=== PATIENT | male | born 1990 | race Two or more races ===

== ENCOUNTER 2024-01-27 18:34 | Emergency (ER) | payer MEDICAID ==
[~2024-01-27] VITALS: Ht 172.7 cm; Wt 74.8 kg
[~2024-01-27 18:34] MED LIST: CHLO25CA22 PO; ESCI20TA PO; LORA0.5T48 PO; MULT-594 PO; PROP20TA7 PO; THIA100T74 PO; TRAZ-257 PO
[2024-01-27] MEDS ORDERED: PANTOPRAZOLE SODIUM IV 40 MG in IV DEXTROSE 5% 100 ML IV ONE (19:15)
[2024-01-27 19:30] LABS: BASOPHILS # (AUTO) 0.2 K/UL (0.0-0.2); BASOPHILS % (AUTO) 2.7 % (0.0-2.0); EOSINOPHILS # (AUTO) 0.1 K/uL (0.0-0.7); EOSINOPHILS % (AUTO) 1.4 % (0.0-7.0); HEMOGLOBIN 15.3 g/dL (12.5-16.3); LYMPHOCYTES # (AUTO) 0.7 K/uL (0.8-4.8); LYMPHOCYTES % (AUTO) 9.9 % (20.5-51.5); MEAN CORPUSCULAR HGB CONC 35 g/dL (32.5-36.3); MEAN CORPUSCULAR VOLUME 92.3 fL (73.0-96.2); MONOCYTES # (AUTO) 0.6 K/uL (0.1-1.30); NEUTROPHILS # (AUTO) 5.6 K/uL (1.8-8.9); PLATELET COUNT (AUTO) 92 K/uL (152-348); RED BLOOD CELL COUNT(AUTO) 4.77 MIL/uL (4.06-5.63); RED CELL DISTRIBUTION WIDTH 13.4 % (12.1-16.2); WHITE BLOOD COUNT (AUTO) 7.1 K/uL (3.6-10.2)
[2024-01-27 19:40] LABS: DIFFERENTIAL COMMENT 1
[2024-01-27 19:44] LABS: CALCIUM 9.2 mg/dL (8.5-10.1); CARBON DIOXIDE 27 mmol/L (21-32); CHLORIDE 92 mmol/L (98-107); CREATININE 0.9 mg/dL (0.6-1.3); GLUCOSE 105 mg/dL (74-106); POTASSIUM 3.9 mmol/L (3.5-5.1); SODIUM SERUM 132 mmol/L (136-145); UREA NITROGEN, BLOOD 23 mg/dL (7-18)
[2024-01-27 19:45] LABS: ETHANOL < 3 MG/DL (0-10)
[2024-01-27 19:50] LABS: ALANINE AMINOTRANSFERASE 28 U/L (16-63); ALBUMIN 4.3 g/dL (3.4-5.0); ALKALINE PHOSPHATASE 104 U/L (50-136); ASPARTATE AMINOTRANSFERASE 20 U/L (15-37); BILIRUBIN,TOTAL 1.3 mg/dL (0.2-1.0); LIPASE 34 U/L (16-77); TOTAL PROTEIN, SERUM 7.8 g/dL (6.4-8.2)
[2024-01-27] MEDS ORDERED: PANTOPRAZOLE SODIUM 40 MG VIAL ONE (19:53)
[2024-01-27] MEDS: IV NS 1000 ML 1,000 ML IV ONE (20:14)
[2024-01-27] MEDS: PANTOPRAZOLE SODIUM 40 MG VIAL IV ONE (20:14)
[2024-01-27 21:04] LABS: *BILIRUBIN,URIN 1+ (NEGATIVE); *BLOOD, URINE NEGATIVE (NEGATIVE); *CLARITY,URINE CLEAR (CLEAR); *COLOR,URINE YELLOW (YELLOW); *KETONES,URINE TRACE (NEGATIVE); *PROTEIN,URINE NEGATIVE (NEGATIVE); LEUKOCYTE ESTERASE ,URINE NEGATIVE (NEGATIVE); NITRITE, URINE NEGATIVE (NEGATIVE); UGLUCOSE NEGATIVE (NEGATIVE)
[2024-01-27 21:16] LABS: BACTERIA,URINE FEW /HPF (NONE SEEN); URIC ACID CRYSTALS,URINE MANY /HPF (NONE SEEN); WBC,URINE NONE SEEN /HPF (0-3)
[2024-01-27] MEDS: HYDROCODONE/APAP 5-325MG TABLET PO ONE (21:20)
[2024-01-27 21:30] LABS: *AMPHETAMINE, URINE NEGATIVE (NEGATIVE); *BARBITURATE, URINE NEGATIVE (NEGATIVE); *BENZODIAZEPINE, URINE POSITIVE (NEGATIVE); *CANNABINOID, URINE NEGATIVE (NEGATIVE); *COCCAINE, URINE NEGATIVE (NEGATIVE); *OPIATE, URINE NEGATIVE (NEGATIVE); *PHENCYCLIDINE SCREEN,URINE NEGATIVE (NEGATIVE)
[2024-01-27 21:37] LABS: FENTANYL, URINE NEGATIVE (NEGATIVE)
[2024-01-27] MEDS ORDERED: HYDROCODONE/APAP 5-325MG TABLET ONE (21:40)
[2024-01-27] MEDS ORDERED: ONDANSETRON ODT 4 MG TAB.RAPDIS ONE (21:47)
[2024-01-27] MEDS: ONDANSETRON ODT 4 MG TAB.RAPDIS SL ONE (21:48)
[2024-01-27] MEDS ORDERED: OMEP20TA20 PO (23:26)
[2024-01-27] MEDS ORDERED: HYDROMORPHONE 1 MG/1 ML DISP.SYRIN ONE (23:40)
[2024-01-27] MEDS: HYDROMORPHONE 1 MG/1 ML DISP.SYRIN IM ONE (23:48)
[2024-01-27] MEDS ORDERED: SULF1TAB48 PO (23:54)
[2024-01-28 00:19] VITALS: BP 130/80; TEMP 98; O2SAT 98
== END 2024-01-28 00:20 | disposition home or self-care (01) ==
LOC: ER 18:44
DX: K29.70 Gastritis, unspecified, without bleeding (principal); Z98.890 Other specified postprocedural states; Z60.2 Problems related to living alone; Z79.899 Other long term (current) drug therapy
CPT/HCPCS: 80053; 81001; 83880; 83690; 85025; 85379; 85651; 86900; 86901; 84484; 36415; 71250; 74176; 99285; 96361; 96374; 96372; 83605; 80320; 80307; C9113 ×2; J1170; J7040; A4606; A4663; G0480; Q0162

== ENCOUNTER 2024-03-30 13:26 | Emergency (ER) | payer MEDICAID ==
[~2024-03-30] VITALS: Ht 175.3 cm; Wt 76.2 kg
[~2024-03-30 13:26] MED LIST changes: +OMEP20TA20 PO; +SULF1TAB48 PO
[2024-03-30] MEDS ORDERED: DIAZEPAM 10 MG/2 ML DISP.SYRIN ONE ×2 (14:15→15:27)
[2024-03-30] MEDS: IV NORMAL SALINE 1000 ML BAG IV ONE (14:22)
[2024-03-30] MEDS: DIAZEPAM 10 MG/2 ML DISP.SYRIN IV ONE ×2 (14:22→15:29)
[2024-03-30 14:24] LABS: BASOPHILS # (AUTO) 0.1 K/UL (0.0-0.2); BASOPHILS % (AUTO) 2.1 % (0.0-2.0); EOSINOPHILS # (AUTO) 0.1 K/uL (0.0-0.7); EOSINOPHILS % (AUTO) 2.1 % (0.0-7.0); HEMATOCRIT 45.5 % (36.7-47.1); HEMOGLOBIN 15.1 g/dL (12.5-16.3); LYMPHOCYTES # (AUTO) 1.4 K/uL (0.8-4.8); LYMPHOCYTES % (AUTO) 23.2 % (20.5-51.5); MEAN CORPUSCULAR HEMOGLOBIN 32.2 uug (23.8-33.4); MEAN CORPUSCULAR HGB CONC 33 g/dL (32.5-36.3); MEAN CORPUSCULAR VOLUME 96.9 fL (73.0-96.2); MONOCYTES # (AUTO) 0.7 K/uL (0.1-1.30); MONOCYTES % (AUTO) 11.4 % (0.0-11.0); NEUTROPHILS # (AUTO) 3.6 K/uL (1.8-8.9); NEUTROPHILS % (AUTO) 61.2 % (38.5-71.5); PLATELET COUNT (AUTO) 403 K/uL (152-348); RED CELL DISTRIBUTION WIDTH 15.3 % (12.1-16.2); WHITE BLOOD COUNT (AUTO) 5.9 K/uL (3.6-10.2)
[2024-03-30 14:33] LABS: DIFFERENTIAL COMMENT 1
[2024-03-30 14:35] LABS: *BILIRUBIN,URIN NEGATIVE (NEGATIVE); *BLOOD, URINE NEGATIVE (NEGATIVE); *CLARITY,URINE CLEAR (CLEAR); *COLOR,URINE YELLOW (YELLOW); *KETONES,URINE TRACE (NEGATIVE); *PROTEIN,URINE NEGATIVE (NEGATIVE); LEUKOCYTE ESTERASE ,URINE NEGATIVE (NEGATIVE); NITRITE, URINE NEGATIVE (NEGATIVE); PH,URINE 8.5 (5.0-8.0); UGLUCOSE NEGATIVE (NEGATIVE)
[2024-03-30 14:37] LABS: CALCIUM 9.4 mg/dL (8.5-10.1); CARBON DIOXIDE 28 mmol/L (21-32); CHLORIDE 98 mmol/L (98-107); CREATININE 0.9 mg/dL (0.6-1.3); GLUCOSE 93 mg/dL (74-106); POTASSIUM 4.9 mmol/L (3.5-5.1); SODIUM SERUM 137 mmol/L (136-145); UREA NITROGEN, BLOOD 15 mg/dL (7-18)
[2024-03-30 14:38] LABS: ETHANOL < 3 MG/DL (0-10)
[2024-03-30 14:43] LABS: ALANINE AMINOTRANSFERASE 35 U/L (16-63); ALBUMIN 4.4 g/dL (3.4-5.0); ALKALINE PHOSPHATASE 79 U/L (50-136); ASPARTATE AMINOTRANSFERASE 18 U/L (15-37); BILIRUBIN,DIRECT 0.3 mg/dL (0.0-0.2); BILIRUBIN,TOTAL 1.1 mg/dL (0.2-1.0); TOTAL PROTEIN, SERUM 7.6 g/dL (6.4-8.2)
[2024-03-30 14:44] LABS: BACTERIA,URINE NONE SEEN /HPF (NONE SEEN); RBC,URINE NONE SEEN /HPF (0-3); SQUAMOUS EPITHELIAL CELL,UR FEW /HPF (NONE SEEN); WBC,URINE 0-3 /HPF (0-3)
[2024-03-30 14:45] LABS: *AMPHETAMINE, URINE NEGATIVE (NEGATIVE); *BARBITURATE, URINE NEGATIVE (NEGATIVE); *BENZODIAZEPINE, URINE POSITIVE (NEGATIVE); *CANNABINOID, URINE NEGATIVE (NEGATIVE); *COCCAINE, URINE NEGATIVE (NEGATIVE); *OPIATE, URINE POSITIVE (NEGATIVE); *PHENCYCLIDINE SCREEN,URINE NEGATIVE (NEGATIVE)
[2024-03-30 14:46] LABS: FENTANYL, URINE NEGATIVE (NEGATIVE)
[2024-03-30] MEDS ORDERED: MAGNESIUM SULFATE/D5W 100 ML ONE (14:51)
[2024-03-30] MEDS: MAGNESIUM SULFATE/D5W 100 ML IV ONE (14:56)
[2024-03-30] MEDS ORDERED: GABAPENTIN 300 MG CAPSULE ONE (14:58)
[2024-03-30] MEDS ORDERED: THIAMINE HCL 200 MG/2 ML VIAL ONE (14:58)
[2024-03-30] MEDS: THIAMINE HCL 200 MG/2 ML VIAL IV ONE (15:03)
[2024-03-30] MEDS: GABAPENTIN 300 MG CAPSULE PO ONE (15:03)
[2024-03-30] MEDS ORDERED: GABA300C PO (16:04)
[2024-03-30] MEDS ORDERED: DIAZ10TA4 PO (16:04)
[2024-03-30 16:29] VITALS: BP 127/82; TEMP 98; O2SAT 99
== END 2024-03-30 16:30 | disposition home or self-care (01) ==
LOC: ER 13:26
DX: F10.239 Alcohol dependence with withdrawal, unspecified (principal); Z98.890 Other specified postprocedural states; Z79.899 Other long term (current) drug therapy; Z60.2 Problems related to living alone; Y90.0 Blood alcohol level of less than 20 mg/100 ml
CPT/HCPCS: 36415; 83735; 85025; 93005; A4606; A4663; G0480; J3360; J3411; J3475; J7040

== ENCOUNTER 2024-07-13 00:15 | Emergency (ER) | payer MEDICAID ==
[~2024-07-13] VITALS: Ht 172.7 cm; Wt 74.8 kg
[~2024-07-13 00:15] MED LIST changes: +DIAZ10TA4 PO; +GABA300C PO; -LORA0.5T48 PO; -SULF1TAB48 PO; -THIA100T74 PO
[2024-07-13] MEDS ORDERED: ONDANSETRON ODT 4 MG TAB.RAPDIS ONE (02:17)
[2024-07-13] MEDS ORDERED: FAMOTIDINE 20 MG TABLET ONE (02:17)
[2024-07-13] MEDS ORDERED: LORAZEPAM 0.5 MG TABLET ONE (02:18)
[2024-07-13 02:24] LABS: EOSINOPHILS # (AUTO) 0.1 K/uL (0.0-0.7); HEMOGLOBIN 15.5 g/dL (12.5-16.3); LYMPHOCYTES # (AUTO) 0.6 K/uL (0.8-4.8)
[2024-07-13] MEDS: ONDANSETRON ODT 4 MG TAB.RAPDIS SL ONE (02:24)
[2024-07-13] MEDS: FAMOTIDINE 20 MG TABLET PO ONE (02:24)
[2024-07-13] MEDS: LORAZEPAM 0.5 MG TABLET PO ONE (02:24)
[2024-07-13 02:26] LABS: BASOPHILS % (AUTO) 0.3 % (0.0-2.0); EOSINOPHILS % (AUTO) 2.8 % (0.0-7.0); LYMPHOCYTES % (AUTO) 14.6 % (20.5-51.5); MEAN CORPUSCULAR HEMOGLOBIN 32.7 uug (23.8-33.4); MEAN CORPUSCULAR HGB CONC 35 g/dL (32.5-36.3); MONOCYTES # (AUTO) 0.6 K/uL (0.1-1.30); MONOCYTES % (AUTO) 13.1 % (0.0-11.0); NEUTROPHILS % (AUTO) 69.2 % (38.5-71.5); RED BLOOD CELL COUNT(AUTO) 4.74 MIL/uL (4.06-5.63); RED CELL DISTRIBUTION WIDTH 15.1 % (12.1-16.2); WHITE BLOOD COUNT (AUTO) 4.3 K/uL (3.6-10.2)
[2024-07-13 02:43] LABS: *BLOOD, URINE NEGATIVE (NEGATIVE); *CLARITY,URINE CLEAR (CLEAR); *COLOR,URINE YELLOW (YELLOW); *KETONES,URINE 2+ (NEGATIVE); *PROTEIN,URINE 2+ (NEGATIVE); LEUKOCYTE ESTERASE ,URINE NEGATIVE (NEGATIVE); NITRITE, URINE POSITIVE (NEGATIVE); PH,URINE 5.5 (5.0-8.0); UGLUCOSE NEGATIVE (NEGATIVE)
[2024-07-13 02:44] LABS: PLATELET COUNT (AUTO) 45 K/uL (152-348)
[2024-07-13 03:01] LABS: ALBUMIN 4.7 g/dL (3.4-5.0); BILIRUBIN,DIRECT 0.4 mg/dL (0.0-0.2); BILIRUBIN,TOTAL 1.6 mg/dL (0.2-1.0); CALCIUM 10.2 mg/dL (8.5-10.1); CREATININE 1.2 mg/dL (0.6-1.3); POTASSIUM 4.4 mmol/L (3.5-5.1); TOTAL PROTEIN, SERUM 8.4 g/dL (6.4-8.2)
[2024-07-13 03:02] LABS: *BILIRUBIN,URIN 3+ (NEGATIVE)
[2024-07-13 03:10] LABS: BACTERIA,URINE MODERATE /HPF (NONE SEEN); RBC,URINE 0-3 /HPF (0-3); SQUAMOUS EPITHELIAL CELL,UR FEW /HPF (NONE SEEN); WBC,URINE 0-3 /HPF (0-3); YEAST,URINE NONE SEEN /HPF (NONE SEEN)
[2024-07-13 03:11] LABS: CALCIUM OXALATE CRYSTALS,UR FEW /HPF (NONE SEEN); CALCIUM PHOSPHATE CRYSTALS,UR NONE SEEN /HPF (NONE SEEN); MUCUS,URINE MANY /LPF (0-FEW)
[2024-07-13] MEDS: IV NS 1000 ML 1,000 ML IV ONE (04:04)
[2024-07-13] MEDS ORDERED: CARB200T8 PO (05:48)
[2024-07-13] MEDS ORDERED: CEFP200T14 PO (05:48)
[2024-07-13] MEDS ORDERED: ONDA4TAB11 PO (05:48)
[2024-07-13 06:02] VITALS: BP 120/80; TEMP 98.4; O2SAT 99
== END 2024-07-13 06:05 | disposition home or self-care (01) ==
LOC: ER 00:15
DX: S83.8X1A Sprain of other specified parts of right knee, initial encounter (principal); S20.211A Contusion of right front wall of thorax, initial encounter; F10.939 Alcohol use, unspecified with withdrawal, unspecified; E87.1 Hypo-osmolality and hyponatremia; E86.0 Dehydration; D69.6 Thrombocytopenia, unspecified; N39.0 Urinary tract infection, site not specified; R11.0 Nausea; R06.00 Dyspnea, unspecified; F32.A Depression, unspecified; F41.9 Anxiety disorder, unspecified; Z92.21 Personal history of antineoplastic chemotherapy; Z85.47 Personal history of malignant neoplasm of testis; Z79.899 Other long term (current) drug therapy; V89.2XXA Person injured in unspecified motor-vehicle accident, traffic, initial encounter; Y93.89 Activity, other specified; Y92.410 Unspecified street and highway as the place of occurrence of the external cause; Y99.8 Other external cause status
CPT/HCPCS: 99284; 96360; 71046; 80076; 80048; 81001; 83690; 83735; 85025; 85730; 36415; 73560; 87086; J7040; A4606; A4663; Q0162

== ENCOUNTER 2024-12-13 10:26 | Inpatient (IN) | payer MEDICAID ==
[~2024-12-13] VITALS: Ht 172.7 cm; Wt 77.1 kg
[~2024-12-13 10:26] MED LIST changes: +CARB200T8 PO; +CEFP200T14 PO; +ONDA4TAB11 PO
[2024-12-13] MEDS ORDERED: KETOROLAC TROMETHAMINE 15 MG INJ ONE (11:03)
[2024-12-13] MEDS: IV NORMAL SALINE 1000 ML BAG IV ONE (11:07)
[2024-12-13] MEDS: KETOROLAC TROMETHAMINE 15 MG INJ IVP ONE (11:08)
[2024-12-13 11:19] LABS: BASOPHILS % (AUTO) 0.9 % (0.0-2.0); EOSINOPHILS # (AUTO) 0.1 K/uL (0.0-0.7); HEMATOCRIT 42.9 % (36.7-47.1); HEMOGLOBIN 14.6 g/dL (12.5-16.3); LYMPHOCYTES # (AUTO) 1.6 K/uL (0.8-4.8); LYMPHOCYTES % (AUTO) 35.9 % (20.5-51.5); MEAN CORPUSCULAR HEMOGLOBIN 32.7 uug (23.8-33.4); MEAN CORPUSCULAR HGB CONC 34 g/dL (32.5-36.3); MEAN CORPUSCULAR VOLUME 96.4 fL (73.0-96.2); MONOCYTES # (AUTO) 0.5 K/uL (0.1-1.30); MONOCYTES % (AUTO) 10.3 % (0.0-11.0); NEUTROPHILS # (AUTO) 2.3 K/uL (1.8-8.9); NEUTROPHILS % (AUTO) 50.9 % (38.5-71.5); PLATELET COUNT (AUTO) 160 K/uL (152-348); RED BLOOD CELL COUNT(AUTO) 4.45 MIL/uL (4.06-5.63); RED CELL DISTRIBUTION WIDTH 14.3 % (12.1-16.2); WHITE BLOOD COUNT (AUTO) 4.5 K/uL (3.6-10.2)
[2024-12-13 11:23] LABS: DIFFERENTIAL COMMENT 1
[2024-12-13 11:28] LABS: *BILIRUBIN,URIN NEGATIVE (NEGATIVE); *BLOOD, URINE NEGATIVE (NEGATIVE); *CLARITY,URINE CLEAR (CLEAR); *COLOR,URINE YELLOW (YELLOW); *KETONES,URINE NEGATIVE (NEGATIVE); *PROTEIN,URINE NEGATIVE (NEGATIVE); LEUKOCYTE ESTERASE ,URINE NEGATIVE (NEGATIVE); NITRITE, URINE NEGATIVE (NEGATIVE); UGLUCOSE NEGATIVE (NEGATIVE)
[2024-12-13 11:29] LABS: ALANINE AMINOTRANSFERASE 35 U/L (16-63); ALKALINE PHOSPHATASE 65 U/L (50-136); ASPARTATE AMINOTRANSFERASE 34 U/L (15-37); BILIRUBIN,DIRECT 0.3 mg/dL (0.0-0.2); BILIRUBIN,TOTAL 0.8 mg/dL (0.2-1.0); CALCIUM 8.8 mg/dL (8.5-10.1); CARBON DIOXIDE 27 mmol/L (21-32); CHLORIDE 100 mmol/L (98-107); CREATININE 0.6 mg/dL (0.6-1.3); GLUCOSE 154 mg/dL (74-106); LIPASE 47 U/L (16-77); POTASSIUM 3.4 mmol/L (3.5-5.1); SODIUM SERUM 136 mmol/L (136-145); TOTAL PROTEIN, SERUM 7.1 g/dL (6.4-8.2); UREA NITROGEN, BLOOD 8 mg/dL (7-18)
[2024-12-13 11:36] LABS: BACTERIA,URINE FEW /HPF (NONE SEEN); WBC,URINE 0-3 /HPF (0-3)
[2024-12-13] MEDS ORDERED: HYDROMORPHONE 1 MG/1 ML DISP.SYRIN ONE ×2 (11:39→14:45)
[2024-12-13] MEDS ORDERED: ONDANSETRON 4 MG/2 ML VIAL ONE (11:39)
[2024-12-13] MEDS: HYDROMORPHONE 1 MG/1 ML DISP.SYRIN IV ONE ×4 (11:44→22:52)
[2024-12-13] MEDS: ONDANSETRON 4 MG/2 ML VIAL IV ONE (11:44)
[2024-12-13] MEDS ORDERED: IV NORMAL SALINE 250 ML IV ONE (12:24)
[2024-12-13] MEDS ORDERED: IOHEXOL 300MG/ML 100 ML INFUS..BTL ONE (12:24)
[2024-12-13] MEDS ORDERED: SWABABLE VALVE TRANSFER SET EA MC ONE (12:24)
[2024-12-13 12:34] LABS: *AMPHETAMINE, URINE NEGATIVE (NEGATIVE); *BARBITURATE, URINE NEGATIVE (NEGATIVE); *BENZODIAZEPINE, URINE POSITIVE (NEGATIVE); *CANNABINOID, URINE NEGATIVE (NEGATIVE); *COCCAINE, URINE NEGATIVE (NEGATIVE); *OPIATE, URINE NEGATIVE (NEGATIVE); *PHENCYCLIDINE SCREEN,URINE NEGATIVE (NEGATIVE); FENTANYL, URINE NEGATIVE (NEGATIVE)
[2024-12-13] MEDS ORDERED: REMEDY ESSENTIAL ZINC PASTE 113 GM TP PRN (16:45)
[2024-12-13] MEDS ORDERED: MAGNESIUM HYDROXIDE 30 ML LIQUID UDC PO PRN (16:45)
[2024-12-13] MEDS ORDERED: ACETAMINOPHEN 325 MG TABLET PO PRN (16:45)
[2024-12-13] MEDS ORDERED: ZOLPIDEM 5 MG TABLET PO PRN (16:45)
[2024-12-13] MEDS ORDERED: GABAPENTIN 300 MG CAPSULE PO PRN (16:45)
[2024-12-13] MEDS ORDERED: CARBAMAZEPINE 200 MG TABLET PO PRN (16:45)
[2024-12-13] MEDS ORDERED: FOLI1TAB94 PO (17:27)
[2024-12-13] MEDS ORDERED: CYAN100T44 PO (17:27)
[2024-12-13 18:12] VITALS: BP 119/88; TEMP 98; O2SAT 96
[2024-12-13] MEDS: PROPRANOLOL HCL 20 MG TABLET PO SCH (18:21)
[2024-12-13] MEDS: SILVER NITRATE APPLICATOR STICK EACH TP ONE ×2 (18:45→22:16)
[2024-12-13] MEDS: LIDOCAINE 2%-EPI 1:100,000 20 ML VIAL TP ONE ×2 (18:45→22:00)
[2024-12-13 19:30] VITALS: BP 140/89; TEMP 98.1; O2SAT 98
[2024-12-13] MEDS: TRAZODONE 100 MG TABLET PO SCH (21:00)
[2024-12-13] MEDS ORDERED: SILVER NITRATE APPLICATOR STICK EACH TP ONE ×2 (22:04→22:47)
[2024-12-13] MEDS ORDERED: THIAMINE HCL 200 MG/2 ML VIAL ONE (22:05)
[2024-12-13] MEDS: THIAMINE HCL INJ 100 MG in IV DEXTROSE 5% 50 ML IV SCH (22:15)
[2024-12-13] MEDS: NICOTINE 21 MG/24HR PATCH TD SCH (22:27)
[2024-12-13] MEDS ORDERED: LIDOCAINE 2%-EPI 1:100,000 20 ML VIAL ONE (22:38)
[2024-12-13] MEDS: CLINDAMYCIN PHOSPHATE IV 900 MG in IV DEXTROSE 5% 100 ML IV SCH (23:18)
[2024-12-14] MEDS: HYDROCODONE/APAP 10-325 MG TABLET PO PRN (00:24)
[2024-12-14] MEDS: HYDROMORPHONE 1 MG/1 ML DISP.SYRIN IV PRN (04:27)
[2024-12-14 06:09] VITALS: BP 132/96; TEMP 98.3; O2SAT 99
[2024-12-14 07:45] LABS: BASOPHILS % (AUTO) 0.6 % (0.0-2.0); EOSINOPHILS # (AUTO) 0.1 K/uL (0.0-0.7); EOSINOPHILS % (AUTO) 2.5 % (0.0-7.0); HEMATOCRIT 41.7 % (36.7-47.1); HEMOGLOBIN 14.3 g/dL (12.5-16.3); LYMPHOCYTES # (AUTO) 0.9 K/uL (0.8-4.8); LYMPHOCYTES % (AUTO) 21.2 % (20.5-51.5); MEAN CORPUSCULAR HEMOGLOBIN 33.2 uug (23.8-33.4); MEAN CORPUSCULAR HGB CONC 34 g/dL (32.5-36.3); MEAN CORPUSCULAR VOLUME 97.1 fL (73.0-96.2); MONOCYTES # (AUTO) 0.5 K/uL (0.1-1.30); MONOCYTES % (AUTO) 10.9 % (0.0-11.0); NEUTROPHILS # (AUTO) 2.7 K/uL (1.8-8.9); NEUTROPHILS % (AUTO) 64.8 % (38.5-71.5); PLATELET COUNT (AUTO) 129 K/uL (152-348); RED BLOOD CELL COUNT(AUTO) 4.29 MIL/uL (4.06-5.63); RED CELL DISTRIBUTION WIDTH 14.2 % (12.1-16.2); WHITE BLOOD COUNT (AUTO) 4.2 K/uL (3.6-10.2)
[2024-12-14 07:56] LABS: CALCIUM 8.9 mg/dL (8.5-10.1); CREATININE 0.7 mg/dL (0.6-1.3); MAGNESIUM 1.8 mg/dL (1.8-2.4); PHOSPHOROUS 3.3 mg/dL (2.5-4.9); POTASSIUM 4.5 mmol/L (3.5-5.1)
[2024-12-14] MEDS: CHLORDIAZEPOXIDE HCL 25 MG CAPSULE PO SCH (09:00)
[2024-12-14] MEDS ORDERED: Medication Not On Formulary EA (Multivitamins (Multivitamin) 1 TAB) PO SCH (09:00)
[2024-12-14] MEDS ORDERED: Medication Not On Formulary EA (Escitalopram Oxalate (Lexapro) 1 TAB) PO SCH (09:00)
[2024-12-14] MEDS: MULTIVITAMINS,THERAPEUTIC TABLET PO SCH (09:01)
[2024-12-14] MEDS: ESCITALOPRAM OXALATE 10 MG TABLET PO SCH (09:01)
[2024-12-14] MEDS: FOLIC ACID 1 MG TABLET PO SCH (09:01)
[2024-12-14] MEDS: CYANOCOBALAMIN 100 MCG TABLET PO SCH (09:02)
[2024-12-14] MEDS ORDERED: LORAZEPAM 2 MG/1 ML VIAL IV ONE (11:30)
[2024-12-14 11:45] VITALS: BP 146/104; TEMP 98; O2SAT 100
[2024-12-14] MEDS: MVI ADULT 10 ML VIAL=1 AMP 10 ML, THIAMINE HCL INJ 100 MG, FOLIC ACID 1 MG, MAGNESIUM S... IV ONE (12:44)
[2024-12-14] MEDS: LORAZEPAM 2 MG/1 ML VIAL IM ONE (12:58)
[2024-12-14] MEDS: ONDANSETRON 4 MG/2 ML VIAL IV PRN (14:31)
[2024-12-14 15:40] VITALS: BP 128/66; TEMP 98.5; O2SAT 100
[2024-12-14 19:30] VITALS: BP 124/85; TEMP 97.8; O2SAT 98
[2024-12-14] MEDS: THIAMINE HCL 100 MG TABLET PO SCH (20:27)
[2024-12-15 05:32] VITALS: BP 127/88; TEMP 98.1; O2SAT 98
[2024-12-15 07:58] LABS: CALCIUM 9.1 mg/dL (8.5-10.1); CREATININE 0.7 mg/dL (0.6-1.3); POTASSIUM 4.5 mmol/L (3.5-5.1)
[2024-12-15 08:00] VITALS: BP 127/88; TEMP 98; O2SAT 98
[2024-12-15 11:14] VITALS: BP 115/70; TEMP 98.4; O2SAT 96
[2024-12-15] MEDS ORDERED: LORAZEPAM 2 MG/1 ML VIAL IM PRN (13:30)
[2024-12-15] MEDS: LORAZEPAM 1 MG TABLET PO PRN (14:16)
[2024-12-15 15:41] VITALS: BP 122/74; TEMP 98.3; O2SAT 95
[2024-12-15] MEDS: LACTULOSE 20 G/30 ML LIQUID UDC PO ONE (17:06)
[2024-12-15 23:12] VITALS: BP 117/69; TEMP 98; O2SAT 98
[2024-12-16 06:00] LABS: EOSINOPHILS # (AUTO) 0.2 K/uL (0.0-0.7); EOSINOPHILS % (AUTO) 4.4 % (0.0-7.0); HEMATOCRIT 41.2 % (36.7-47.1); HEMOGLOBIN 14.2 g/dL (12.5-16.3); LYMPHOCYTES # (AUTO) 1.2 K/uL (0.8-4.8); LYMPHOCYTES % (AUTO) 33.6 % (20.5-51.5); MEAN CORPUSCULAR HEMOGLOBIN 33.5 uug (23.8-33.4); MEAN CORPUSCULAR HGB CONC 35 g/dL (32.5-36.3); MEAN CORPUSCULAR VOLUME 96.8 fL (73.0-96.2); MONOCYTES # (AUTO) 0.4 K/uL (0.1-1.30); MONOCYTES % (AUTO) 12.2 % (0.0-11.0); NEUTROPHILS # (AUTO) 1.7 K/uL (1.8-8.9); NEUTROPHILS % (AUTO) 48.8 % (38.5-71.5); PLATELET COUNT (AUTO) 115 K/uL (152-348); RED BLOOD CELL COUNT(AUTO) 4.25 MIL/uL (4.06-5.63); RED CELL DISTRIBUTION WIDTH 14.1 % (12.1-16.2); WHITE BLOOD COUNT (AUTO) 3.5 K/uL (3.6-10.2)
[2024-12-16 06:01] LABS: DIFFERENTIAL COMMENT 1
[2024-12-16 06:47] VITALS: BP 119/83; TEMP 96.9; O2SAT 98
[2024-12-16] MEDS: MIRALAX 17 GM POWD.PACK PO SCH (08:20)
[2024-12-16 10:36] VITALS: BP 135/65; TEMP 98.2; O2SAT 96
[2024-12-16] MEDS: HYDROCORTISONE 2.5 % RECTAL CREAM 28.35 GM TUBE RC PRN (12:02)
[2024-12-16 15:43] VITALS: BP 130/87; TEMP 97.8; O2SAT 99
[2024-12-16 19:30] VITALS: BP 115/80; TEMP 98; O2SAT 95
[2024-12-17 06:34] VITALS: BP 122/77; TEMP 98.3; O2SAT 98
[2024-12-17 11:10] VITALS: BP 125/70; TEMP 98.2; O2SAT 97
[2024-12-17 15:29] VITALS: BP 128/85; TEMP 97.6; O2SAT 100
[2024-12-17] MEDS: MORPHINE SULFATE SR 30 MG TABLET.SA PO SCH (20:30)
[2024-12-17 21:24] VITALS: BP 123/78; TEMP 97.7
[2024-12-18 06:53] VITALS: BP 131/83; TEMP 97.9
[2024-12-18] MEDS ORDERED: FOLI1TAB94 PO (10:41)
[2024-12-18] MEDS ORDERED: MULT-24 PO (10:41)
[2024-12-18] MEDS ORDERED: LIDO35.4 TOP (10:41)
[2024-12-18] MEDS ORDERED: ESCI-9 PO (10:41)
[2024-12-18] MEDS ORDERED: HYDR-3980 PO ×2 (10:41→12:38)
[2024-12-18] MEDS ORDERED: NICO-780 TD (10:41)
[2024-12-18] MEDS ORDERED: HYDR28.316 RC (10:41)
[2024-12-18] MEDS ORDERED: MORP30TA59 PO ×2 (10:41→12:38)
[2024-12-18] MEDS ORDERED: CYAN100T9 PO (10:41)
[2024-12-18] MEDS ORDERED: POLY17PO4 PO (10:41)
[2024-12-18] MEDS ORDERED: CHLO25CA22 PO ×2 (10:41→12:38)
[2024-12-18] MEDS ORDERED: THIA100T13 PO (10:41)
[2024-12-18] MEDS: LIDOCAINE 5% OINT 35.44 GM TUBE TOP PRN (10:59)
[2024-12-18 11:40] VITALS: BP 128/76; TEMP 97.9; O2SAT 100
[2024-12-18] MEDS ORDERED: CLINDAMYCIN PHOSPHATE IV 900 MG in IV DEXTROSE 5% 50 ML IV SCH (12:14)
[2024-12-18] MEDS ORDERED: CLIN300C12 PO (12:38)
[2024-12-18] MEDS ORDERED: THIA100T68 PO (12:38)
[2024-12-18 12:49] VITALS: BP 124/67
[2024-12-18] MEDS: CLINDAMYCIN PHOSPHATE IV 900 MG in IV DEXTROSE 5% 50 ML IV SCH (13:03)
== END 2024-12-18 14:40 | disposition home or self-care (01) | DRG 254 ==
LOC: ER 10:26 → MEDSURG3 16:34
PROVIDERS: ADMIT Nurse Practitioner Acute Care; ATTEND Nurse Practitioner Acute Care
PROC: 069Y0ZZ Drainage of Lower Vein, Open Approach (ICD-10-PCS; principal; 2024-12-13)
DX: K61.2 Anorectal abscess (principal); E87.1 Hypo-osmolality and hyponatremia; K64.5 Perianal venous thrombosis; F10.139 Alcohol abuse with withdrawal, unspecified; F17.210 Nicotine dependence, cigarettes, uncomplicated; Z85.47 Personal history of malignant neoplasm of testis; Z90.79 Acquired absence of other genital organ(s); Z92.21 Personal history of antineoplastic chemotherapy; F06.4 Anxiety disorder due to known physiological condition; F32.A Depression, unspecified; Z79.899 Other long term (current) drug therapy
CPT/HCPCS: 36415; 71045; 72193; 83690; 83735; 84100; 84484; 85025; 85730; 98960; A4606; A4663; G0378; G0480; J1171; J1885; J2060; J2405; J3411; J3475; J3490; J7040; J7042; Q9967

== ENCOUNTER 2025-07-14 10:09 | Emergency (ER) | payer MEDICAID ==
[~2025-07-14] VITALS: Ht 172.7 cm; Wt 77.1 kg
[~2025-07-14 10:09] MED LIST changes: -CARB200T8 PO; -CEFP200T14 PO; +CLIN300C12 PO; +CYAN100T44 PO; +CYAN100T9 PO; -DIAZ10TA4 PO; +ESCI-9 PO; +FOLI1TAB94 PO; -GABA300C PO; +HYDR-3980 PO; +HYDR28.316 RC; +LIDO35.4 TOP; +MORP30TA59 PO; +MULT-24 PO; +NICO-780 TD; -OMEP20TA20 PO; +POLY17PO4 PO; +THIA100T13 PO; +THIA100T68 PO
[2025-07-14 10:15] VITALS: BP 132/86
[2025-07-14] MEDS ORDERED: LIDOCAINE HCL 1% 20 ML VIAL ONE (10:32)
[2025-07-14] MEDS ORDERED: HYDROMORPHONE HCL 2 MG TABLET ONE (10:37)
[2025-07-14] MEDS: HYDROMORPHONE HCL 2 MG TABLET PO ONE (10:50)
[2025-07-14] MEDS: LIDOCAINE HCL 1% 20 ML VIAL TP ONE (10:51)
[2025-07-14] MEDS ORDERED: LIDO35.4 TOP (10:57)
[2025-07-14] MEDS ORDERED: HYDR28.316 RC (10:57)
[2025-07-14] MEDS ORDERED: HYDR2TAB4 PO (10:58)
[2025-07-14] MEDS ORDERED: NALO4SPR BNOSTRILS (11:10)
[2025-07-14 11:24] VITALS: BP 132/86; TEMP 98.3; O2SAT 99
== END 2025-07-14 11:25 | disposition home or self-care (01) ==
LOC: ER 10:11
DX: K64.5 Perianal venous thrombosis (principal); K61.1 Rectal abscess; F17.210 Nicotine dependence, cigarettes, uncomplicated; F32.A Depression, unspecified; F41.9 Anxiety disorder, unspecified; Z79.891 Long term (current) use of opiate analgesic; Z79.899 Other long term (current) drug therapy; Z85.47 Personal history of malignant neoplasm of testis; Z87.19 Personal history of other diseases of the digestive system; Z88.5 Allergy status to narcotic agent; Z92.21 Personal history of antineoplastic chemotherapy
CPT/HCPCS: 46050; 99284; J3490; A4606; A4663